=== PATIENT | male | born 1935 | race Hispanic/Latino ===

== ENCOUNTER 2017-12-24 12:54 | Observation (INO) | payer OTHER ==
[~2017-12-24] VITALS: Ht 172.7 cm; Wt 86.0 kg
[2017-12-24 13:49] LABS: BASOPHILS % (AUTO) 0.4 % (0.0-5.0); EOSINOPHILS % (AUTO) 4.9 % (0.0-8.0); HEMATOCRIT 37.1 % (42-54); LYMPHOCYTES % (AUTO) 21.1 % (21.0-51.0); MEAN CORPUSCULAR HEMOGLOBIN 28.6 pg (27.0-33.0); MEAN CORPUSCULAR HGB CONC 33.4 g/dL (32.0-36.0); MEAN CORPUSCULAR VOLUME 85.8 fL (79-99); MONOCYTES % (AUTO) 8.1 % (3.0-13.0); NEUTROPHILS % (AUTO) 65.5 % (40.0-77.0); PLATELET COUNT (AUTO) 184 K/uL (130-400); RED BLOOD CELL COUNT(AUTO) 4.33 MIL/uL (4.50-6.20); RED CELL DISTRIBUTION WIDTH 14.4 % (11.0-15.5); WHITE BLOOD COUNT (AUTO) 6.9 K/uL (4.8-10.8)
[2017-12-24 13:56] LABS: CREATININE 1.2 mg/dL (0.5-1.5)
[2017-12-24 14:01] LABS: ALBUMIN 3.2 g/dL (3.5-5.0); BILIRUBIN,TOTAL 0.5 mg/dL (0.2-1.0); TOTAL PROTEIN, SERUM 6.2 g/dL (6.0-8.3)
[2017-12-24 14:22] LABS: ALBUMIN 3.3 g/dL (3.5-5.0); BILIRUBIN,DIRECT 0.1 mg/dL (0.0-0.3); BILIRUBIN,TOTAL 0.5 mg/dL (0.2-1.0)
[2017-12-24 16:13] VITALS: BP 171/75
[2017-12-24 19:00] VITALS: BP 175/79
[2017-12-24] MEDS ORDERED: CANDESARTAN CILEXETIL 16 MG TAB PO SCH (19:00)
[2017-12-24] MEDS ORDERED: ALBUTEROL SULFATE 0.083% 2.5 MG/3 ML INH IH PRN (19:15)
[2017-12-24] MEDS ORDERED: DIPHENHYDRAMINE HCL 25 MG CAPSULE PO PRN (19:15)
[2017-12-24] MEDS ORDERED: GUAIFENESIN-DM 200/20 MG 10 ML PO PRN (19:15)
[2017-12-24] MEDS ORDERED: ZOLPIDEM TARTRATE 5 MG TAB PO PRN (19:15)
[2017-12-24] MEDS: METOPROLOL TARTRATE 50 MG TAB PO SCH (20:39)
[2017-12-24] MEDS: LOSARTAN 100 MG TABLET PO SCH (20:39)
[2017-12-24 23:00] VITALS: BP 153/69
[2017-12-25 03:00] VITALS: BP 150/74
[2017-12-25 04:02] LABS: HEMATOCRIT 38.6 % (42-54); MEAN CORPUSCULAR HEMOGLOBIN 28.6 pg (27.0-33.0); MEAN CORPUSCULAR HGB CONC 33.3 g/dL (32.0-36.0); MEAN CORPUSCULAR VOLUME 85.9 fL (79-99); PLATELET COUNT (AUTO) 202 K/uL (130-400); RED BLOOD CELL COUNT(AUTO) 4.49 MIL/uL (4.50-6.20); RED CELL DISTRIBUTION WIDTH 14.8 % (11.0-15.5); WHITE BLOOD COUNT (AUTO) 8.2 K/uL (4.8-10.8)
[2017-12-25 04:29] LABS: ALBUMIN 3.3 g/dL (3.5-5.0); BILIRUBIN,DIRECT 0.1 mg/dL (0.0-0.3); BILIRUBIN,TOTAL 0.5 mg/dL (0.2-1.0); CREATININE 1.2 mg/dL (0.5-1.5); POTASSIUM 4.1 mmol/L (3.5-5.1); TOTAL PROTEIN, SERUM 6.5 g/dL (6.0-8.3)
[2017-12-25 07:00] VITALS: BP 155/77
[2017-12-25] MEDS: MYRBETRIQ 25MG PO SCH ×2 (07:54→21:00)
[2017-12-25] MEDS: METOPROLOL TARTRATE 50 MG TAB PO SCH (07:54)
[2017-12-25] MEDS: LOSARTAN 100 MG TABLET PO SCH (08:01)
[2017-12-25] MEDS: PANTOPRAZOLE SODIUM 40 MG TABLET.DR PO SCH (08:02)
[2017-12-25] MEDS: AMLODIPINE BESYLATE 5 MG TAB PO SCH (09:39)
[2017-12-25 11:00] VITALS: BP 159/61
[2017-12-25 16:00] VITALS: BP 166/76
[2017-12-25 19:00] VITALS: BP 140/78
[2017-12-25 23:00] VITALS: BP 158/74
[2017-12-26 04:00] VITALS: BP 189/84
[2017-12-26] MEDS ORDERED: CLONIDINE HCL 0.1 MG TABLET PO STA (04:49)
[2017-12-26 06:25] VITALS: BP 168/97
[2017-12-26 07:45] VITALS: BP 160/82
[2017-12-26] MEDS: AMLODIPINE BESYLATE 5 MG TAB PO SCH (08:46)
[2017-12-26] MEDS: PANTOPRAZOLE SODIUM 40 MG TABLET.DR PO SCH (08:46)
[2017-12-26] MEDS: LOSARTAN 100 MG TABLET PO SCH (08:46)
[2017-12-26] MEDS: MYRBETRIQ 25MG PO SCH (09:00)
[2017-12-26 11:11] VITALS: BP 146/68
[2017-12-26] MEDS ORDERED: MIRA25TA PO ×2 (11:50)
[2017-12-26] MEDS ORDERED: METO-391 PO (11:50)
[2017-12-26] MEDS ORDERED: PRED20TA3 PO ×2 (11:50)
[2017-12-26] MEDS ORDERED: BACL10TA PO ×2 (11:50)
[2017-12-26] MEDS ORDERED: FLUT16H NASAL ×2 (11:50)
[2017-12-26] MEDS ORDERED: OLME40TA18 PO ×2 (11:50)
[2017-12-26] MEDS ORDERED: SERT100T PO ×2 (11:50)
[2017-12-26] MEDS ORDERED: ESOM40CA54 PO ×2 (11:50)
[2017-12-26] MEDS ORDERED: AMLO10TA6 PO ×2 (11:52)
[2017-12-26] MEDS ORDERED: CLON0.1T PO ×2 (11:52)
== END 2017-12-26 13:17 | disposition home or self-care (01) ==
LOC: EDH 12:54 → EDHIP 12:55 → 2AH 16:41
PROVIDERS: ADMIT Internal Medicine; ATTEND Internal Medicine
DX: I10 Essential (primary) hypertension (principal); I16.1 Hypertensive emergency; E78.5 Hyperlipidemia, unspecified; J44.9 Chronic obstructive pulmonary disease, unspecified; F32.9 Major depressive disorder, single episode, unspecified
CPT/HCPCS: 36415 ×2; 71045; 80048; 80053; 80076; 85025; 85027; 93005; 93306; 94640; 94664; 99285; G0378 ×48

== ENCOUNTER 2017-12-27 00:32 | Emergency (ER) | payer OTHER ==
[~2017-12-27 00:32] MED LIST: AMLO10TA6 PO; BACL10TA PO; CLON0.1T PO; ESOM40CA54 PO; FLUT16H NASAL; METO-391 PO; MIRA25TA PO; OLME40TA18 PO; PRED20TA3 PO; SERT100T PO
== END 2017-12-27 02:29 | disposition home or self-care (01) ==
LOC: EDH 00:32
DX: I10 Essential (primary) hypertension (principal); F43.9 Reaction to severe stress, unspecified; E78.5 Hyperlipidemia, unspecified; Z98.890 Other specified postprocedural states; Z72.0 Tobacco use
CPT/HCPCS: 93005; 96360

== ENCOUNTER 2018-01-01 13:20 | Emergency (ER) | payer OTHER ==
[~2018-01-01 13:20] MED LIST changes: -METO-391 PO
[2018-01-01] MEDS ORDERED: IOHEXOL 350 MG/ML 100ML INFUS..BTL IV ONE (13:51)
[2018-01-01 14:08] LABS: BASOPHILS % (AUTO) 0.2 % (0.0-5.0); EOSINOPHILS % (AUTO) 1.6 % (0.0-8.0); HEMATOCRIT 38.2 % (42-54); LYMPHOCYTES % (AUTO) 11.3 % (21.0-51.0); MEAN CORPUSCULAR HEMOGLOBIN 28.2 pg (27.0-33.0); MEAN CORPUSCULAR HGB CONC 33.1 g/dL (32.0-36.0); MEAN CORPUSCULAR VOLUME 85.2 fL (79-99); NEUTROPHILS % (AUTO) 79.9 % (40.0-77.0); PLATELET COUNT (AUTO) 185 K/uL (130-400); RED BLOOD CELL COUNT(AUTO) 4.48 MIL/uL (4.50-6.20); RED CELL DISTRIBUTION WIDTH 14.5 % (11.0-15.5); WHITE BLOOD COUNT (AUTO) 10.8 K/uL (4.8-10.8)
[2018-01-01 14:16] LABS: CREATININE 1.5 mg/dL (0.5-1.5); POTASSIUM 3.6 mmol/L (3.5-5.1)
[2018-01-01 14:21] LABS: ALBUMIN 3.7 g/dL (3.5-5.0); BILIRUBIN,TOTAL 0.8 mg/dL (0.2-1.0); INR 0.97 (0.85-1.15); PARTIAL THROMBOPLASTIN TIME 26.6 SEC (26.3-35.5); PROTHROMBIN TIME 10.2 SEC (9.6-11.6)
[2018-01-01] MEDS ORDERED: TRAMADOL HCL 50 MG TABLET ONE (15:23)
== END 2018-01-01 16:11 | disposition home or self-care (01) ==
LOC: EDH 13:20
DX: S02.2XXA Fracture of nasal bones, initial encounter for closed fracture (principal); S01.91XA Laceration without foreign body of unspecified part of head, initial encounter; I10 Essential (primary) hypertension; E78.5 Hyperlipidemia, unspecified; Z98.890 Other specified postprocedural states; V49.9XXA Car occupant (driver) (passenger) injured in unspecified traffic accident, initial encounter; Y93.89 Activity, other specified; Y92.410 Unspecified street and highway as the place of occurrence of the external cause; Y99.8 Other external cause status
CPT/HCPCS: 36415; 70450; 70486; 71045; 71260; 72125; 74177; 80053; 82550; 84484; 85025; 85610; 85730; 93005; 99285; Q9967

== ENCOUNTER 2023-04-16 06:01 | Day surgery (SDC) | payer MEDICARE ==
[2023-04-16] VITALS (12 sets, daily range): BP systolic 118–147; BP diastolic 48–87; PULSE 48–57; RESP 14–21
[~2023-04-16] VITALS: Ht 172.7 cm; Wt 84.4 kg
[~2023-04-16 06:01] MED LIST changes: -AMLO10TA6 PO; +ASPI-1197 PO; -CLON0.1T PO; +CLOP75TA32 PO; +DULO30CA52 PO; -FLUT16H NASAL; +FURO20TA4 PO; +GABA-529 PO; +ISOS30TA92 PO; +METO-391 PO; -MIRA25TA PO; +MIRA50TA PO; +MIRT-73 PO; +OXYB5TAB20 PO; +ROSU20TA73 PO; +SERT-440 PO; -SERT100T PO; +TOLT4CAP27 PO; +TRAZ-187 PO
[2023-04-16] MEDS ORDERED: ACET-2079 PO (07:24)
[2023-04-16] MEDS ORDERED: VITA1CAP85 PO (07:24)
[2023-04-16] MEDS ORDERED: MIRA50TA PO (07:24)
[2023-04-16] MEDS ORDERED: DOCU-116 PO (07:24)
[2023-04-16] MEDS: 0.9%NACL 1000ML 1,000 ML IV ONE (07:27)
[2023-04-16] MEDS ORDERED: PROPOFOL 10 MG/ML 20ML VIAL IV ONE (08:39)
[2023-04-16] MEDS ORDERED: LIDOCAINE HCL 1% 20 ML VIAL ONE (08:40)
[2023-04-16] MEDS ORDERED: LIDOCAINE 1%-EPI 1:100,000 20 ML VIAL ONE (08:53)
== END 2023-04-16 10:15 | disposition home or self-care (01) ==
LOC: ENDO 06:01 → DAH 06:01 → ENDO 10:15
PROVIDERS: ATTEND Internal Medicine Gastroenterology
DX: R13.12 Dysphagia, oropharyngeal phase (principal); R63.39 Other feeding difficulties; K31.89 Other diseases of stomach and duodenum; K21.9 Gastro-esophageal reflux disease without esophagitis; J44.9 Chronic obstructive pulmonary disease, unspecified; I10 Essential (primary) hypertension; E78.5 Hyperlipidemia, unspecified; F41.9 Anxiety disorder, unspecified; F32.A Depression, unspecified; I25.10 Atherosclerotic heart disease of native coronary artery without angina pectoris; M81.0 Age-related osteoporosis without current pathological fracture; M19.90 Unspecified osteoarthritis, unspecified site; F17.200 Nicotine dependence, unspecified, uncomplicated; G47.33 Obstructive sleep apnea (adult) (pediatric); I25.2 Old myocardial infarction; Z95.5 Presence of coronary angioplasty implant and graft; Z90.89 Acquired absence of other organs; Z98.890 Other specified postprocedural states; Z98.49 Cataract extraction status, unspecified eye
CPT/HCPCS: 43239; 43248; J3490; J7030; J2704; A4620; A4215 ×2; A4223; A7002; A4222; A4221; A4663; A4606

== ENCOUNTER → 2024-02-26 | Emergency (ER) | payer MEDICARE ==
[~2024-02-26] VITALS: Ht 172.7 cm; Wt 83.9 kg
[~2024-02-26] MED LIST changes: +ACET-2079 PO; +AEC81 PO; +ALBU2.5V2 NEB; -ASPI-1197 PO; +BUDE10.7 PO; +CHOL100046 PO; +DOCU-116 PO; -ESOM40CA54 PO; +ESOM40CA66 PO; -OXYB5TAB20 PO; -ROSU20TA73 PO; +ROSU20TA98 PO; -SERT-440 PO; -TRAZ-187 PO; +VENL-53 PO
[2024-02-26 07:16] VITALS: BP 189/100; PULSE 65; RESP 16; TEMP 97.9
--- NOTE | 2024-02-26 07:26 | NUR ---
PATIENT AND SON AT BEDSIDE VOICED DESIRE TO [facility] AND OPT TO GO TO [facility] [place]. REQUESTED NEUROSURGEON RELATED TO CHIEF COMPLAINT. ADVISED PATIENT SERVICES WILL BE OFFERED AND IF NECESSARY TRANSFER WILL BE AVAILABLE. HOWEVER ADVISED NUEROSURGEON WAS NOT AVAILABE AT THIS TIME AT [facility] [place]. DR STEVEN GAO.
--- NOTE | 2024-02-26 07:34 | ERN ---
General Chief Complaint: Other Problems Stated Complaint: SENT BY GIOVANNA YATES FROM [facility] Time Seen by MD: 07:16 Source: patient History of Present Illness Initial Comments Patient is a an 89-year-old gentleman coming in for further evaluation. Per patient he has been having dysphagia for some time evaluated at [facility] in the [place] and was referred to a specialist from [facility]. Per patient the specialist advised him to have a CT of the neck performed. He states that they called him last night to seek immediate help with the nearest ER for a possible infected cervical fracture repair. Patient states he had that cervical fracture repair five years ago. Patient also stated that he has been having dysphagia. Allergies: Coded Allergies: No Known Allergies (Unverified Allergy, Unknown, 12/24/17) Home Meds Reported Medications Budesonide/Glycopyr/Formoterol (Breztri Aerosphere Inhaler) 160 Mcg-9 Mcg-4.8 Mcg/Actuation Hfa.aer.ad, 2 PUFF PO BID 01/15/24 Aspirin (ASPIRIN 81 MG ECTAB) 81 Mg Ectab, 81 MG PO DAILY, TAB.EC 01/15/24 Cholecalciferol (Vitamin D3) (Vitamin D3) 25 Mcg (1000 Unit) Capsule, 25 MCG PO DAILY, CAP 01/15/24 Venlafaxine HCl (Venlafaxine HCl) 37.5 Mg Tablet, 37.5 MG PO DAILYBKFST, TAB 01/15/24 Albuterol Sulfate (Albuterol Sulfate) 2.5 Mg/3 Ml (0.083 %) Vial.neb, 1 VIAL NEB [id number] PRN for wheezing, #150 ML 0 Refills 01/15/24 Acetaminophen with Codeine (Acetaminophen-Cod #3 Tablet) 300 Mg-30 Mg Tablet, 1 EACH PO BID PRN for PAIN, TAB 04/16/23 Mirabegron (Myrbetriq) 50 Mg Tab.er.24h, 50 MG PO DAILY, TAB 04/16/23 Docusate Sodium (Colace) 100 Mg Capsule, 100 MG PO BID, CAP 04/16/23 Mirtazapine (Mirtazapine) 30 Mg Tab.rapdis, 30 MG PO HS, TAB 08/20/22 Rosuvastatin Calcium (Rosuvastatin Calcium) 20 Mg Tablet, 20 MG PO DAILY, TAB 05/22/22 Clopidogrel Bisulfate (Clopidogrel) 75 Mg Tablet, 75 MG PO DAILY, TAB 05/22/22 Olmesartan Medoxomil (Olmesartan Medoxomil) 40 Mg Tablet, 40 MG PO DAILY, TAB 05/22/22 Tolterodine Tartrate (Tolterodine Tartrate ER) 4 Mg Cap.er.24h, 4 MG PO DAILY, CAPSULE.DR 05/22/22 Esomeprazole Magnesium (Esomeprazole Magnesium) 40 Mg Capsule.dr, 40 MG PO DAILYBKFST, CAP 05/22/22 Duloxetine HCl (Duloxetine HCl) 30 Mg Capsule.dr, 60 MG PO DAILY, CAP 05/22/22 Furosemide (Furosemide) 20 Mg Tablet, 20 MG PO DAILY, TAB 05/22/22 Isosorbide Mononitrate (Isosorbide Mononitrate ER) 30 Mg Tab.er.24h, 30 MG PO DAILY, TAB 05/22/22 Gabapentin (Gabapentin) 100 Mg Capsule, 100 MG PO BID, CAP 05/22/22 Metoprolol Succinate (Metoprolol Succinate) 50 Mg Tab.er.24h, 50 MG PO DAILY, TAB 05/22/22 Baclofen (Baclofen) 10 Mg Tablet, 10 MG PO BID PRN for MUSCLE SPASMS, TAB 05/22/22 Prednisone (Prednisone) 20 Mg Tablet, 10 MG PO DAILY, TAB 12/26/17 Past Medical History Past Medical History: Arthritis, CHF, Hypertension Medical History Other: HX OF PROSTATE CA Past Surgical History: Other Surgical History Other: LOWER BACK SX; NECK SX; HEART STENT Social History Social History: Negative, Lives with family ROS Dictation CONSTITUTIONAL: No chills, no fever, no weakness, no diaphoresis, no malaise. HEAD/FACE: No signs of trauma. EENT: No eye pain, no blurred vision, no tearing, no double vision, no ear pain, no ear discharge, no nose pain, no nasal congestion, no throat pain, no throat swelling, no mouth pain. RESPIRATORY: No cough, no orthopnea, no SOB, no stridor, no wheezing. CARDIOVASCULAR: No chest pain, no edema, no palpitations, no syncope. GASTROINTESTINAL/ABDOMINAL: No abdominal pain, no constipation, no diarrhea, no nausea, no vomiting. GENITOURINARY: No abnormal discharge, no dysuria, no frequent urination, no hematuria. No complaints of pain in the genitals. MUSCULOSKELETAL: No back pain, no gout, no joint pain, no joint swelling, no muscle pain, no muscle stiffness, no neck pain. INTEGUMENTARY: No change in color, no change in hair/nails, no dryness, no lesion, no lumps, no rash. NEUROLOGICAL/PSYCH: No anxiety, not depressed, no emotional problem, no headache, no numbness, no pre-existing deficit, no history of seizures, no tremors, no weakness. HEMATOLOGIC/LYMPHATIC: Not anemic, no history of blood clots, no apparent bleeding, no bruising, glands not swollen. All Systems Negative, Except as Noted. Physical Exam Physical Exam Dictation VITAL SIGNS: Reviewed. GENERAL APPEARANCE: Alert, oriented x3, no acute distress, obese. HEAD AND FACE: Non-traumatic. EYES: PERRL, pink conjunctivas, eyelid no trauma, anterior chamber clear. EARS: Pinnas intact and no signs of trauma or erythema. Ear canals clear and no discharge. TMs no erythema. NOSE: No discharge, no bleeding. OROPHARYNX: Mouth normal, teeth no caries, tongue pink. Pharynx clear, no erythema. Tonsils no exudates, no abscesses noted. Mucous membrane moist. NECK: Supple, non-tender, no thyromegaly, no masses, no JVD, no bruits. BREAST: Deferred. CHEST: No tenderness, no crepitus, no paradoxical movement, no retractions. LUNGS: Clear, well-ventilated, symmetric, no rales, no wheezing, no rhonchi, no stridor, good breath sounds bilaterally. HEART: Regular rate, regular rhythm, no murmur, no gallops. VASCULAR: No peripheral edema. ABDOMEN: Soft, positive bowel sounds, nondistended, no guarding, nontender, no rebound, no masses no hepatomegaly, no splenomegaly, no Harrington's sign, no hernias. RECTAL: Deferred. GENITAL: Deferred. NEUROLOGICAL: Normal speech, gross motor function intact, gross sensory function intact. MUSCULOSKELETAL: Neck nontender, full range of motion, back nontender, full range of motion. EXTREMITIES: Nontender, full range of motion. SKIN: Color pink, dry, no turgor, no rash, no lacerations, no abrasions, no contusions. LYMPHATICS: Deferred. Results Laboratory and Microbiology Labs Reviewed?: Yes MDM MDM: Differential diagnosis: Abnormal CT, dysphagia, Patient is a an 89-year-old gentleman coming in due to an abnormal CT. He states that an ENT from [facility] I advised him to seek help with the nearest ER. I advised patient a CT need to be performed because we do not have his current images he states that the [facility] and if we can get him. Advised him we will start working on that. Also advised him that we will be needing to transfer him to to the nearest neurosurgeon. He states he was not aware of this and asked me if it is better if he left. I told them know that we could we would transfer him we will make arrangements with the transfer. Per nursing staff patient eloped without notifying anybody. ED Course Vital Signs Date Time Temp Pulse Resp B/P (MAP) Pulse Ox O2 Delivery O2 Flow Rate FiO2 02/26/24 07:16 97.9 65 16 189/100 93 Room Air DX & DISP Disposition: AMA Departure Impression: Primary Impression: Abnormal CT of spine Condition: Stable Additional Instructions: Was informed by nursing staff the patient eloped without notifying anybody. Referrals: LITO GARCIA MD (PCP) Time of Disposition: 07:33 JORJE HARRIS MD Feb 26, 2024 07:34
== END ==
LOC: EDH 07:12
DX: R93.7 Abnormal findings on diagnostic imaging of other parts of musculoskeletal system (principal); I11.0 Hypertensive heart disease with heart failure; I50.9 Heart failure, unspecified; Z79.02 Long term (current) use of antithrombotics/antiplatelets; Z79.52 Long term (current) use of systemic steroids; Z79.82 Long term (current) use of aspirin; Z79.899 Other long term (current) drug therapy; Z95.5 Presence of coronary angioplasty implant and graft; Z98.890 Other specified postprocedural states
CPT/HCPCS: 99281

== ENCOUNTER 2024-05-16 14:05 | Observation (INO) | payer MEDICARE ==
[~2024-05-16] VITALS: Ht 172.7 cm; Wt 86.2 kg
[2024-05-16 15:08] LABS: BASOPHILS # (AUTO) 0.02 K/uL (0.00-0.20); BASOPHILS % (AUTO) 0.3 % (0.0-5.0); EOSINOPHILS # (AUTO) 0.27 K/uL (0.00-0.70); EOSINOPHILS % (AUTO) 4.7 % (0.0-8.0); HEMATOCRIT 39.2 % (42-54); IMMATURE GRANULOCYTE ABSOLUTE 0.03 K/uL (0-1); LYMPHOCYTES # (AUTO) 1.2 K/uL (1.0-4.8); LYMPHOCYTES % (AUTO) 20.1 % (21.0-51.0); MEAN CORPUSCULAR HEMOGLOBIN 29.4 pg (27.0-33.0); MEAN CORPUSCULAR HGB CONC 32.1 g/dL (32.0-36.0); MEAN CORPUSCULAR VOLUME 91.4 fL (79-99); MONOCYTES # (AUTO) 0.5 K/uL (0.1-1.0); MONOCYTES % (AUTO) 8.7 % (3.0-13.0); NEUTROPHILS # (AUTO) 3.8 K/uL (1.8-7.7); NEUTROPHILS % (AUTO) 65.7 % (40.0-77.0); PLATELET COUNT (AUTO) 135 K/uL (130-400); RED BLOOD CELL COUNT(AUTO) 4.29 MIL/uL (4.50-6.20); RED CELL DISTRIBUTION WIDTH 15.5 % (11.0-15.5); WHITE BLOOD COUNT (AUTO) 5.7 K/uL (4.8-10.8)
[2024-05-16] MEDS: LACTATED RINGERS 1000ML 1,000 ML IV ONE (15:12)
--- NOTE | 2024-05-16 15:16 | HMCIMG ---
CT HEAD WITHOUT CONTRAST INDICATION: AMS TECHNIQUE: Noncontrast axial helical CT images from the vertex through the skull base using 5 mm slice thickness without contrast material. Coronal and sagittal reconstructions were also included. Dose reduction techniques was used using integrated, automated and adaptive dose reduction exposure control. CT was performed with one or more of the following dose reduction techniques: Automated exposure control, adjustment of the mA and/or kV according to patient size, or use of iterative reconstruction technique. COMPARISON: 08/19/2022 FINDINGS: Scattered and coalescent subcortical and periventricular white matter low attenuating areas likely represent residual of chronic small vessel arteriopathy and/or remote vascular insult. Chronic left basal ganglionic lacunar infarct or dilated perivascular space. Generalized mild cerebral cortical atrophy is present.. No evidence for abnormal extra-axial fluid collections or masses. The ventricles and sulci are normal in size and configuration. No evidence for intracranial parenchymal, epidural, or subdural hemorrhage, mass effect or midline shift. The lees-white matter differentiation is well preserved. No secondary evidence to suggest acute ischemia. Mild calcific plaque is present along the angeles of the cavernous segments of both internal carotid arteries, including mild along the angeles of both vertebral arteries at the level of the foramen magnum. The brainstem and cerebellum appear normal. The visualized orbits appear unremarkable. The visible paranasal sinuses and mastoid air cells are clear. The calvarium appears normal. IMPRESSION: Chronic white matter ischemic changes, mild brain atrophy, and arteriosclerotic disease as described, without acute component.
[2024-05-16 15:21] LABS: INR 1.03 (0.85-1.15); PROTHROMBIN TIME 10.9 SEC (9.6-11.6)
[2024-05-16 15:22] LABS: PARTIAL THROMBOPLASTIN TIME 31.2 SEC (26.3-35.5)
[2024-05-16 15:26] LABS: B-TYPE NATRIURETIC PEPTIDE 157 pg/mL (0-100)
--- NOTE | 2024-05-16 15:27 | HMCIMG ---
PORTABLE CHEST RADIOGRAPH INDICATION: CP COMPARISON: 01/15/2024 CT chest FINDINGS: Extremely shallow inspiration. Heart size is normal. The pulmonary vascularity and angel appear normal. No abnormal pulmonary parenchymal opacity or consolidation identified. No significant pleural effusion noted. No pneumothorax detected. IMPRESSION: Extremely shallow inspiration without radiographic evidence for any acute cardiopulmonary process.
--- NOTE | 2024-05-16 16:36 | ERN ---
General Chief Complaint: Fatigue Stated Complaint: LETHARGY Time Seen by MD: 14:08 Source: patient History of Present Illness Initial Comments Patient is a an 89-year-old gentleman brought in by family members due to generalized body weakness and altered mental status. Per family member patient has been taking Tylenol with codeine took one dose in his started having generalized body weakness with altered mental status. No fever or chills. Allergies: Coded Allergies: No Known Allergies (Unverified Allergy, Unknown, 12/24/17) Home Meds Reported Medications Budesonide/Glycopyr/Formoterol (Breztri Aerosphere Inhaler) 160 Mcg-9 Mcg-4.8 Mcg/Actuation Hfa.aer.ad, 2 PUFF PO BID 01/15/24 Aspirin (ASPIRIN 81 MG ECTAB) 81 Mg Ectab, 81 MG PO DAILY, TAB.EC 01/15/24 Cholecalciferol (Vitamin D3) (Vitamin D3) 25 Mcg (1000 Unit) Capsule, 25 MCG PO DAILY, CAP 01/15/24 Venlafaxine HCl (Venlafaxine HCl) 37.5 Mg Tablet, 37.5 MG PO DAILYBKFST, TAB 01/15/24 Albuterol Sulfate (Albuterol Sulfate) 2.5 Mg/3 Ml (0.083 %) Vial.neb, 1 VIAL NEB [id number] PRN for wheezing, #150 ML 0 Refills 01/15/24 Acetaminophen with Codeine (Acetaminophen-Cod #3 Tablet) 300 Mg-30 Mg Tablet, 1 EACH PO BID PRN for PAIN, TAB 04/16/23 Mirabegron (Myrbetriq) 50 Mg Tab.er.24h, 50 MG PO DAILY, TAB 04/16/23 Docusate Sodium (Colace) 100 Mg Capsule, 100 MG PO BID, CAP 04/16/23 Mirtazapine (Mirtazapine) 30 Mg Tab.rapdis, 30 MG PO HS, TAB 08/20/22 Rosuvastatin Calcium (Rosuvastatin Calcium) 20 Mg Tablet, 20 MG PO DAILY, TAB 05/22/22 Clopidogrel Bisulfate (Clopidogrel) 75 Mg Tablet, 75 MG PO DAILY, TAB 05/22/22 Olmesartan Medoxomil (Olmesartan Medoxomil) 40 Mg Tablet, 40 MG PO DAILY, TAB 05/22/22 Tolterodine Tartrate (Tolterodine Tartrate ER) 4 Mg Cap.er.24h, 4 MG PO DAILY, CAPSULE.DR 05/22/22 Esomeprazole Magnesium (Esomeprazole Magnesium) 40 Mg Capsule.dr, 40 MG PO DAILYBKFST, CAP 05/22/22 Duloxetine HCl (Duloxetine HCl) 30 Mg Capsule.dr, 60 MG PO DAILY, CAP 05/22/22 Furosemide (Furosemide) 20 Mg Tablet, 20 MG PO DAILY, TAB 05/22/22 Isosorbide Mononitrate (Isosorbide Mononitrate ER) 30 Mg Tab.er.24h, 30 MG PO DAILY, TAB 05/22/22 Gabapentin (Gabapentin) 100 Mg Capsule, 100 MG PO BID, CAP 05/22/22 Metoprolol Succinate (Metoprolol Succinate) 50 Mg Tab.er.24h, 50 MG PO DAILY, TAB 05/22/22 Baclofen (Baclofen) 10 Mg Tablet, 10 MG PO BID PRN for MUSCLE SPASMS, TAB 05/22/22 Prednisone (Prednisone) 20 Mg Tablet, 10 MG PO DAILY, TAB 12/26/17 Past Medical History Past Medical History: Arthritis, CHF, Hypertension Medical History Other: HX OF PROSTATE CA Past Surgical History: Other Surgical History Other: LOWER BACK SX; NECK SX; HEART STENT Social History Social History: Negative, Lives with family ROS Dictation CONSTITUTIONAL: No chills, no fever, no weakness, no diaphoresis, no malaise. HEAD/FACE: No signs of trauma. EENT: No eye pain, no blurred vision, no tearing, no double vision, no ear pain, no ear discharge, no nose pain, no nasal congestion, no throat pain, no t hroat swelling, no mouth pain. RESPIRATORY: No cough, no orthopnea, no SOB, no stridor, no wheezing. CARDIOVASCULAR: No chest pain, no edema, no palpitations, no syncope. GASTROINTESTINAL/ABDOMINAL: No abdominal pain, no constipation, no diarrhea, n o nausea, no vomiting. GENITOURINARY: No abnormal discharge, no dysuria, no frequent urination, no hematuria. No complaints of pain in the genitals. MUSCULOSKELETAL: No back pain, no gout, no joint pain, no joint swelling, no muscle pain, no muscle stiffness, no neck pain. INTEGUMENTARY: No change in color, no change in hair/nails, no dryness, no lesion, no lumps, no rash. NEUROLOGICAL/PSYCH: No anxiety, not depressed, no emotional problem, no headache, no numbness, no pre-existing deficit, no history of seizures, no tremors, no weakness. HEMATOLOGIC/LYMPHATIC: Not anemic, no history of blood clots, no apparent bleeding, no bruising, glands not swollen. All Systems Negative, Except as Noted. Physical Exam Physical Exam Dictation VITAL SIGNS: Reviewed. GENERAL APPEARANCE: Alert, oriented x3, no acute distress, obese. HEAD AND FACE: Non-traumatic. EYES: PERRL, pink conjunctivas, eyelid no trauma, anterior chamber clear. EARS: Pinnas intact and no signs of trauma or erythema. Ear canals clear and no discharge. TMs no erythema. NOSE: No discharge, no bleeding. OROPHARYNX: Mouth normal, teeth no caries, tongue pink. Pharynx clear, no erythema. Tonsils no exudates, no abscesses noted. Mucous membrane moist. NECK: Supple, non-tender, no thyromegaly, no masses, no JVD, no bruits. BREAST: Deferred. CHEST: No tenderness, no crepitus, no paradoxical movement, no retractions. LUNGS: Clear, well-ventilated, symmetric, no rales, no wheezing, no rhonchi, no stridor, good breath sounds bilaterally. HEART: Regular rate, regular rhythm, no murmur, no gallops. VASCULAR: No peripheral edema. ABDOMEN: Soft, positive bowel sounds, nondistended, no guarding, nontender, no rebound, no masses no hepatomegaly, no splenomegaly, no Harrington's sign, no hernias. RECTAL: Deferred. GENITAL: Deferred. NEUROLOGICAL: Normal speech, gross motor function intact, gross sensory function intact. MUSCULOSKELETAL: Neck nontender, full range of motion, back nontender, full range of motion. EXTREMITIES: Nontender, full range of motion. SKIN: Color pink, dry, no turgor, no rash, no lacerations, no abrasions, no contusions. LYMPHATICS: Deferred. Results Laboratory and Microbiology Lab and Micro Result Laboratory Tests Test 05/16/24 15:00 White Blood Count 5.7 K/uL (4.8-10.8) Red Blood Count 4.29 MIL/uL (4.50-6.20) L Hemoglobin 12.6 g/dL (14.0-18.0) L Hematocrit 39.2 % (42-54) L Mean Corpuscular Volume 91.4 fL (79-99) Mean Corpuscular Hemoglobin 29.4 pg (27.0-33.0) Mean Corpuscular Hemoglobin Concent 32.1 g/dL (32.0-36.0) Red Cell Distribution Width 15.5 % (11.0-15.5) Platelet Count 135 K/uL (130-400) Mean Platelet Volume 9.9 fL (7.5-10.5) Immature Granulocyte % (Auto) 0.5 % (0-1) Neutrophils (%) (Auto) 65.7 % (40.0-77.0) Lymphocytes (%) (Auto) 20.1 % (21.0-51.0) L Monocytes (%) (Auto) 8.7 % (3.0-13.0) Eosinophils (%) (Auto) 4.7 % (0.0-8.0) Basophils (%) (Auto) 0.3 % (0.0-5.0) Neutrophils # (Auto) 3.8 K/uL (1.8-7.7) Lymphocytes # (Auto) 1.2 K/uL (1.0-4.8) Monocytes # (Auto) 0.5 K/uL (0.1-1.0) Eosinophils # (Auto) 0.27 K/uL (0.00-0.70) Basophils # (Auto) 0.02 K/uL (0.00-0.20) Absolute Immature Granulocyte (auto 0.03 K/uL (0-1) Nucleated Red Blood Cells 0.0 % (0.0-0.19) Prothrombin Time 10.9 SEC (9.6-11.6) Prothromb Time International Ratio 1.03 (0.85-1.15) Activated Partial Thromboplast Time 31.2 SEC (26.3-35.5) Sodium Level 144 mmol/L (136-145) Potassium Level 4.7 mmol/L (3.5-5.1) Chloride Level 103 mmol/L (101-111) Carbon Dioxide Level 28 mmol/L (21-32) Blood Urea Nitrogen 21 mg/dL (7-18) H Creatinine 2.8 mg/dL (0.5-1.3) H Glomerular Filtration Rate Calc 21 mL/min (>90) Random Glucose 121 mg/dL (70-105) H Total Calcium 9.4 mg/dL (8.5-10.1) Magnesium Level 2.00 mg/dL (1.80-2.40) Ammonia 11 umol/L (11-32) Total Creatine Kinase 107 U/L (21-232) Troponin I High Sensitivity 73 ng/L (4-75) B-Type Natriuretic Peptide 157 pg/mL (0-100) H EKG/XRAY/US/CT/MRI EKG Comment 05/16/2024 time 3:55 p.m. Ventricular rate [address] wave elevation or depression X-RAY Comment [address] [place] [id number] IMAGING REPORT Signed PATIENT: MARIA VICTORIA ZENG JR MR#: [id number] : 1935 SEX: M AGE: 89 LOCATION: ED ORDER 40 STATUS: REG ER [facility] REPORT#: [id number] SERVICE 1439 REASON: CP ORDERING PHYSICIAN: JORJE HARRIS MD PROCEDURE: CXR1VW - CHEST 1VW PORTABLE CHEST RADIOGRAPH INDICATION: CP COMPARISON: 01/15/2024 CT chest FINDINGS: Extremely shallow inspiration. Heart size is normal. The pulmonary vascularity and angel appear normal. No abnormal pulmonary parenchymal opacity or consolidation identified. No significant pleural effusion noted. No pneumothorax detected. IMPRESSION: Extremely shallow inspiration without radiographic evidence for any acute cardiopulmonary process. DICTATED BY: CHRISTOPHER DAMICO MD DATE: 05/16/241524 ELECTRONICALLY SIGNED BY: CHRISTOPHER DAMICO MD DATE: 05/16/241526 CT Scan Comment [address] [place] [id number] IMAGING REPORT Signed PATIENT: MARIA VICTORIA ZENG JR MR#: [id number] : 1935 SEX: M AGE: 89 LOCATION: ED ORDER 144 STATUS: REG ER REPORT#: [id number] SERVICE 1439 REASON: AMS ORDERING PHYSICIAN: JORJE HARRIS MD PROCEDURE: HEAD WO - CT HEAD/BRAIN W/O CONTRAST CT HEAD WITHOUT CONTRAST INDICATION: AMS TECHNIQUE: Noncontrast axial helical CT images from the vertex through the skull base using 5 mm slice thickness without contrast material. Coronal and sagittal reconstructions were also included. Dose reduction techniques was used using integrated, automated and adaptive dose reduction exposure control. CT was performed with one or more of the following dose reduction techniques: Automated exposure control, adjustment of the mA and/or kV according to patient size, or use of iterative reconstruction technique. COMPARISON: 08/19/2022 FINDINGS: Scattered and coalescent subcortical and periventricular white matter low attenuating areas likely represent residual of chronic small vessel arteriopathy and/or remote vascular insult. Chronic left basal ganglionic lacunar infarct or dilated perivascular space. Generalized mild cerebral cortical atrophy is present.. No evidence for abnormal extra-axial fluid collections or masses. The ventricles and sulci are normal in size and configuration. No evidence for intracranial parenchymal, epidural, or subdural hemorrhage, mass effect or midline shift. The lees-white matter differentiation is well preserved. No secondary evidence to suggest acute ischemia. Mild calcific plaque is present along the angeles of the cavernous segments of both internal carotid arteries, including mild along the angeles of both vertebral arteries at the level of the foramen magnum. The brainstem and cerebellum appear normal. The visualized orbits appear unremarkable. The visible paranasal sinuses and mastoid air cells are clear. The calvarium appears normal. IMPRESSION: Chronic white matter ischemic changes, mild brain atrophy, and arteriosclerotic disease as described, without acute component. DICTATED BY: CHRISTOPHER DAMICO MD DATE: 05/16/24 151 ELECTRONICALLY SIGNED BY: CHRISTOPHER DAMICO MD DATE: 05/16/24 1516 MDM MDM: Differential diagnosis: MARIBELL, DEHYDRATION, Rationale: Tests considered and ordered secondary to shared decision making include: Previous outside records reviewed: Old ER visits. Risk of complication and/or morbidity or mortality of patient management: None Medications-Per medication reconciliation Need for hospitalization: Patient does not meet criteria for hospitalization. Need for emergency major/minor surgery: No There are no social concerns with this patient. Prescription drug management Prescriptions will include symptomatic care Patient's prior external medical records from other ER visits were reviewed by me as indicated. Prior testing and results from previous visits were reviewed. Prior tests were taken into account with medical decision making and resource utilization, independent historian/historians were used to obtain complete medical history. I independently interpreted the test that were performed, results were reviewed by me and considered findings on radiology if ordered. Medical management and examination interpretation discussions were had by me with other qualified healthcare professionals as indicated for the patient's care. Patient has an acute kidney injury associated with his weakness. We have called Dr. Maher around 8:00 p.m. and he will get back to us. ED Course Orders Procedure Category Date Status Time Cbc With Differential LAB 05/16/24 Complete 14:39 Prothrombin Time With LAB 05/16/24 Complete INR 14:39 B-Type Natriuretic LAB 05/16/24 Complete Peptide 14:39 Chest 1vw RAD 05/16/24 Resulted 14:39 12 Lead Ekg Tracing- EKG 05/16/24 Logged Technical 14:39 Lactated Ringers PHA 05/16/24 Complete 1000ml (Lactated 15:00 Magnesium LAB 05/16/24 Complete 14:39 Creatine Kinase, Total LAB 05/16/24 Complete 14:39 Troponin I High LAB 05/16/24 Complete Sensitivity 14:39 Urinalysis Profile LAB 05/16/24 Logged 14:39 Partial LAB 05/16/24 Complete Thromboplastin Time 14:39 Ammonia LAB 05/16/24 Complete 14:39 Ct Head/Brain W/O CT 05/16/24 Resulted Contrast 14:39 Basic Metabolic Panel LAB 05/16/24 Complete 17:38 0.9%Nacl 1000ml (Ns PHA 05/16/24 Complete 1000ml) 19:00 Current Medications Medications (Trade) Dose Ordered Sig/Alycia Route PRN Reason Start Time Stop Time Status Last Admin Dose Admin Lactated Ringer's 1,000 ml @ 0 mls/hr ONCE ONCE IV 05/16/24 15:00 05/16/24 15:01 DC 05/16/24 15:12 Sodium Chloride 1,000 ml @ 0 mls/hr ONCE ONCE IV 05/16/24 19:00 05/16/24 19:01 DC 05/16/24 20:06 Vital Signs Date Time Temp Pulse Resp B/P (MAP) Pulse Ox O2 Delivery O2 Flow Rate FiO2 05/16/24 17:50 94 18 166/89 95 Nasal Cannula* 2 28 05/16/24 15:59 97.9 58 14 108/58 97 Room Air* 0 21 05/16/24 14:09 98.1 71 16 94/59 98 Room Air 0 DX & DISP Disposition: Other(Comment) (PATIENT CARE TRANSITIONED TO DR. LANDA) Departure Impression: Primary Impression: MARIBELL (acute kidney injury) Condition: Stable Referrals: LITO GARCIA MD (PCP) JORJE HARRIS MD May 16, 2024 16:36 BLAZE LANDA MD May 16, 2024 22:11
[2024-05-16 18:22] LABS: CREATININE 2.8 mg/dL (0.5-1.3); POTASSIUM 4.7 mmol/L (3.5-5.1)
[2024-05-16] MEDS: 0.9%NACL 1000ML 1,000 ML IV ONE (20:06)
--- NOTE | 2024-05-16 23:42 | NUR ---
BLADDER SCAN 504 ML
[2024-05-17 00:18] LABS: APPEARANCE,URINE CLEAR (CLEAR); BILIRUBIN,URINE NEGATIVE (NEGATIVE); COLOR,URINE LIGHT-YELLOW (YELLOW); GLUCOSE, URINE (UA) NEGATIVE (NEGATIVE); KETONES,URINE NEGATIVE (NEGATIVE); LEUKOCYTE ESTERASE ,URINE NEGATIVE Leu/uL (NEGATIVE); NITRATE,URINE NEGATIVE (NEGATIVE); OCCULT BLOOD,URINE NEGATIVE (NEGATIVE); PROTEIN,URINE NEGATIVE (NEGATIVE); UROBILINOGEN,URINE 0.2 mg/dL (0.2-1.0)
[2024-05-17 00:19] LABS: ADD UA MICROSCOPIC NO
[2024-05-17] MEDS: cefTRIAXone 1G VIAL IVPB SCH (00:32)
[2024-05-17] MEDS ORDERED: OXYB5TAB20 PO (00:57)
[2024-05-17] MEDS ORDERED: VENL-53 PO (00:57)
[2024-05-17] MEDS ORDERED: MIRT-93 PO (00:57)
[2024-05-17] MEDS ORDERED: TOLT4CAP27 PO (00:57)
[2024-05-17] MEDS ORDERED: ESOM40CA66 PO (00:57)
[2024-05-17] MEDS ORDERED: TRAZ-187 PO (00:57)
[2024-05-17] MEDS ORDERED: ASPI-1443 PO (00:57)
[2024-05-17] MEDS ORDERED: METO-409 PO (00:57)
[2024-05-17] MEDS ORDERED: DOCU100C33 PO (00:57)
[2024-05-17] MEDS ORDERED: NAPR-1194 PO (00:57)
[2024-05-17] MEDS ORDERED: ROSU40TA88 PO (00:57)
[2024-05-17] MEDS ORDERED: NAPROXEN 500 MG TABLET PO PRN (01:00)
[2024-05-17] MEDS ORDERED: trAZOdone HCL 100 MG TABLET PO PRN (01:00)
[2024-05-17 06:26] LABS: BASOPHILS # (AUTO) 0.02 K/uL (0.00-0.20); BASOPHILS % (AUTO) 0.3 % (0.0-5.0); EOSINOPHILS # (AUTO) 0.25 K/uL (0.00-0.70); EOSINOPHILS % (AUTO) 4.2 % (0.0-8.0); HEMATOCRIT 40.5 % (42-54); IMMATURE GRANULOCYTE ABSOLUTE 0.02 K/uL (0-1); LYMPHOCYTES # (AUTO) 1.5 K/uL (1.0-4.8); LYMPHOCYTES % (AUTO) 24.6 % (21.0-51.0); MEAN CORPUSCULAR HEMOGLOBIN 28.6 pg (27.0-33.0); MEAN CORPUSCULAR HGB CONC 31.1 g/dL (32.0-36.0); MEAN CORPUSCULAR VOLUME 91.8 fL (79-99); MONOCYTES # (AUTO) 0.5 K/uL (0.1-1.0); MONOCYTES % (AUTO) 8.8 % (3.0-13.0); NEUTROPHILS # (AUTO) 3.7 K/uL (1.8-7.7); NEUTROPHILS % (AUTO) 61.8 % (40.0-77.0); PLATELET COUNT (AUTO) 128 K/uL (130-400); RED BLOOD CELL COUNT(AUTO) 4.41 MIL/uL (4.50-6.20); RED CELL DISTRIBUTION WIDTH 15.4 % (11.0-15.5)
[2024-05-17 06:34] LABS: ALBUMIN 3.1 g/dL (3.5-5.0); BILIRUBIN,TOTAL 0.5 mg/dL (0.2-1.0); CREATININE 1.8 mg/dL (0.5-1.3); POTASSIUM 4.7 mmol/L (3.5-5.1); TOTAL PROTEIN, SERUM 6.4 g/dL (6.0-8.3)
--- NOTE | 2024-05-17 07:00 | NUR ---
Assumed patients care.
--- NOTE | 2024-05-17 08:00 | NUR ---
Home medications reconsiled by physician.
[2024-05-17] MEDS: PANTOPrazole 40 MG TAB DR PO SCH (08:05)
[2024-05-17] MEDS: oxyBUTYnin chloRIDE 5 MG TABLET PO SCH (08:05)
[2024-05-17] MEDS: doCUSate SODIUM 100 MG CAP PO SCH (08:05)
[2024-05-17] MEDS: furoSEMIDE 20 MG TABLET PO SCH (08:05)
[2024-05-17] MEDS: cloPIDOgrel 75MG TAB PO SCH (08:05)
--- NOTE | 2024-05-17 08:05 | EKG ---
[facility] Test Date: 2024-05-16 Test Time: 14:55:03 Pat Name: MARIA VICTORIA ZENG Department: [facility]IP Room: 322 Gender: M Well Puller: [id number] : 1935 Requested By: JORJE HARRIS Order Number: [id number] Reading MD: Gisella Cortés Measurements Intervals [place] Rate: 89 P: 0 [place]: 0 QRS: 0 QRSD: 123 T: 184 QT: 422 QTc: 513 Interpretive Statements Likely sinus rhythm with pacs and sinus arrhythmia poor baseline, p waves not well seen Right bundle branch block Abnrm T, consider ischemia, anterolateral lds Electronically Signed On 05-24-2024 00:47:37 CDT by Gisella Cortés Please click the below link to view image of tracing.
[2024-05-17] MEDS: acetaMINOPHEN WITH coDEINE 1 TAB TAB PO PRN (08:06)
[2024-05-17] MEDS: metOPROLol sucCINATE 50 MG TAB.SR.24H PO SCH (08:06)
[2024-05-17] MEDS: GABApentin 100 MG CAPSULE PO SCH (08:07)
[2024-05-17] MEDS: ISOSORBIDE MONO 30MG SR TAB PO SCH (08:07)
[2024-05-17] MEDS: BACLOFEN 10 MG TABLET PO SCH (08:07)
[2024-05-17] MEDS: 1/2 NS 1000ML 1,000 ML IV SCH (08:23)
[2024-05-17] MEDS: LoSARTan 100 MG TABLET PO SCH (08:49)
[2024-05-17] MEDS: CHOLECALCIFEROL PO SCH (08:50)
[2024-05-17] MEDS: VENLAFAXINE HCL PO SCH (08:50)
[2024-05-17] MEDS: MIRABEGRON PO SCH (08:50)
--- NOTE | 2024-05-17 08:52 | NUR ---
Discussed plan of care, pain management, diet restrictions, and home medications. Patient and son verbalized understanding.
--- NOTE | 2024-05-17 08:56 | NUR ---
Called extention [phone] to give report. no answer.
[2024-05-17 09:00] VITALS: BP 136/70; PULSE 89; RESP 18; TEMP 98.3
--- NOTE | 2024-05-17 09:30 | NUR ---
Received from ER PT is received from ER. IV fluids are infusing by PIV. There is Unger catheter in place to gravity. PT denies pain and his son was at the bedisde during admissio to answer questions. The call perez is left in reach and the bed is in a low position.
--- NOTE | 2024-05-17 09:58 | PN ---
SUBJECTIVE: The patient was admitted by Dr. Maher for assessment and treatment of generalized body weakness and change in mental status. Decreasing oral intake. The patient was examined. Labs were reviewed. He was admitted with diagnosis of acute kidney injury, dehydration, possible UTI. The patient is currently on Rocephin 1 gram IV daily as well as IV fluids. OBJECTIVE: GENERAL: He is currently comfortable in bed, not in distress. VITAL SIGNS: In the chart. HEENT: Normocephalic, atraumatic. LUNGS: Clear to auscultation. HEART: S1, S2 are distant. ABDOMEN: Soft, nontender. LABORATORY DATA: WBC count 6, hemoglobin 12.6, platelets 128. Sodium 141, potassium 4.7, BUN 17, creatinine 1.8, albumin 3.1. ASSESSMENT AND PLAN: * Dehydration. Continue with IV fluids. * Acute kidney injury. Continue with IV fluids. * Hypertension, controlled. Continue current medications. * Depression. Continue current medications. 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 Continue current approach. * COPD. Continue home medications. Plan to discharge when stable. DOS: 05/17/2024 TID: [id number] RECEIPT: [id number] [facility]
[2024-05-17 10:00] VITALS: O2SAT 9
--- NOTE | 2024-05-17 10:44 | HMCIMG ---
US RENAL SONOGRAM HISTORY: Acute renal insufficiency COMPARISON: None TECHNIQUE: Renal and bladder ultrasound study was performed. FINDINGS: The right kidney measures 8.7 x 4.3 x 5.1 cm. The left kidney measures 8.9 x 4.8 x 4.3 cm. No evidence of hydronephrosis is seen of either kidney. Both kidneys are mildly echogenic consistent with medical renal disease. Bladder is poorly distended. Unger catheter is seen. IMPRESSION: 1. No hydronephrosis is seen.
[2024-05-17 11:11] VITALS: BP 110/60; PULSE 73; RESP 18; TEMP 98
[2024-05-17] MEDS ORDERED: PHARMACY COMMUNICATION MISC SCH (11:30)
[2024-05-17 15:12] VITALS: BP 109/72; PULSE 64; RESP 18; TEMP 98.1
--- NOTE | 2024-05-17 15:41 | NUR ---
DCP: HOME Sw met with pt who lives at home with a 09/09 caregiver Delphine Vanegas. GEORGIE Estes [phone] is ER contact for pt. Pt also has a LEGAL ADVISER 3x a week and provider 10hrs wk, and a nurse 1x a month thru [place]. Pt has walker with seat, w/c, shower chair and nebulizer. PCP is Alicia De La Cruz and Dr Worthy at [place]. Pt uses [facility] for rx. Pt states he will return home with current services at [facility] Addendum: 05/17/24 at 1546 by NIC HIDALGO Amended: Links added.
[2024-05-17] MEDS: ASPIRIN 81 MG EC TAB PO SCH (16:09)
[2024-05-17 19:00] VITALS: BP 130/77; PULSE 53; RESP 18; TEMP 98.6
[2024-05-17] MEDS: TOLTERODINE TARTRATE PO SCH (19:54)
[2024-05-17] MEDS: mirtAZAPine 15 MG TABLET PO SCH (19:54)
[2024-05-17] MEDS: atorVAStatin 40 MG TABLET PO SCH (19:54)
[2024-05-17 20:00] VITALS: O2SAT 97
--- NOTE | 2024-05-17 22:50 | HP ---
HISTORY AND PHYSICAL NOTE DATE OF CONSULTATION: 05/17/24 REASON FOR CONSULTATION: Weakness HISTORY OF PRESENT ILLNESS: Patient is a an 89-year-old gentleman brought in by family members due to generalized body weakness and altered mental status. Per family member patient has been taking Tylenol with codeine took one dose in his started having generalized body weakness with altered mental status. No fever or chills. Allergies: Coded Allergies: No Known Allergies (Unverified Allergy, Unknown, 12/24/17) Home Meds Reported Medications Budesonide/Glycopyr/Formoterol (Breztri Aerosphere Inhaler) 160 Mcg-9 Mcg-4.8 Mcg/Actuation Hfa.aer.ad, 2 PUFF PO BID 01/15/24 Aspirin (ASPIRIN 81 MG ECTAB) 81 Mg Ectab, 81 MG PO DAILY, TAB.EC 01/15/24 Cholecalciferol (Vitamin D3) (Vitamin D3) 25 Mcg (1000 Unit) Capsule, 25 MCG PO DAILY, CAP 01/15/24 Venlafaxine HCl (Venlafaxine HCl) 37.5 Mg Tablet, 37.5 MG PO DAILYBKFST, TAB 01/15/24 Albuterol Sulfate (Albuterol Sulfate) 2.5 Mg/3 Ml (0.083 %) Vial.neb, 1 VIAL NEB [id number] PRN for wheezing, #150 ML 0 Refills 01/15/24 Acetaminophen with Codeine (Acetaminophen-Cod #3 Tablet) 300 Mg-30 Mg Tablet, 1 EACH PO BID PRN for PAIN, TAB 04/16/23 Mirabegron (Myrbetriq) 50 Mg Tab.er.24h, 50 MG PO DAILY, TAB 04/16/23 Docusate Sodium (Colace) 100 Mg Capsule, 100 MG PO BID, CAP 04/16/23 Mirtazapine (Mirtazapine) 30 Mg Tab.rapdis, 30 MG PO HS, TAB 08/20/22 Rosuvastatin Calcium (Rosuvastatin Calcium) 20 Mg Tablet, 20 MG PO DAILY, TAB 05/22/22 Clopidogrel Bisulfate (Clopidogrel) 75 Mg Tablet, 75 MG PO DAILY, TAB 05/22/22 Olmesartan Medoxomil (Olmesartan Medoxomil) 40 Mg Tablet, 40 MG PO DAILY, TAB 05/22/22 Tolterodine Tartrate (Tolterodine Tartrate ER) 4 Mg Cap.er.24h, 4 MG PO DAILY, CAPSULE.DR 05/22/22 Esomeprazole Magnesium (Esomeprazole Magnesium) 40 Mg Capsule.dr, 40 MG PO DAILYBKFST, CAP 05/22/22 Duloxetine HCl (Duloxetine HCl) 30 Mg Capsule.dr, 60 MG PO DAILY, CAP 05/22/22 Furosemide (Furosemide) 20 Mg Tablet, 20 MG PO DAILY, TAB 05/22/22 Isosorbide Mononitrate (Isosorbide Mononitrate ER) 30 Mg Tab.er.24h, 30 MG PO DAILY, TAB 05/22/22 Gabapentin (Gabapentin) 100 Mg Capsule, 100 MG PO BID, CAP 05/22/22 Metoprolol Succinate (Metoprolol Succinate) 50 Mg Tab.er.24h, 50 MG PO DAILY, TAB 05/22/22 Baclofen (Baclofen) 10 Mg Tablet, 10 MG PO BID PRN for MUSCLE SPASMS, TAB 05/22/22 Prednisone (Prednisone) 20 Mg Tablet, 10 MG PO DAILY, TAB 12/26/17 Past History Past Medical History Past Medical History: Arthritis, CHF, Hypertension Medical History Other: HX OF PROSTATE CA Past Surgical History: Other Surgical History Other: LOWER BACK SX; NECK SX; HEART STENT Social History Social History: Negative, Lives with family Review of Systems ROS Dictation CONSTITUTIONAL: No chills, no fever, no weakness, no diaphoresis, no malaise. HEAD/FACE: No signs of trauma. EENT: No eye pain, no blurred vision, no tearing, no double vision, no ear pain, no ear discharge, no nose pain, no nasal congestion, no throat pain, no throat swelling, no mouth pain. RESPIRATORY: No cough, no orthopnea, no SOB, no stridor, no wheezing. CARDIOVASCULAR: No chest pain, no edema, no palpitations, no syncope. GASTROINTESTINAL/ABDOMINAL: No abdominal pain, no constipation, no diarrhea, no nausea, no vomiting. GENITOURINARY: No abnormal discharge, no dysuria, no frequent urination, no hematuria. No complaints of pain in the genitals. MUSCULOSKELETAL: No back pain, no gout, no joint pain, no joint swelling, no muscle pain, no muscle stiffness, no neck pain. INTEGUMENTARY: No change in color, no change in hair/nails, no dryness, no lesion, no lumps, no rash. NEUROLOGICAL/PSYCH: No anxiety, not depressed, no emotional problem, no headache, no numbness, no pre-existing deficit, no history of seizures, no t remors, no weakness. HEMATOLOGIC/LYMPHATIC: Not anemic, no history of blood clots, no apparent bleeding, no bruising, glands not swollen. All Systems Negative, Except as Noted. Physical Exam ALLERGIES: Coded Allergies: No Known Allergies (Unverified Allergy, Unknown, 12/24/17) HOME MEDS: Reported Medications Trazodone HCl (Trazodone HCl) 100 Mg Tablet, 50 MG PO HSPRN PRN for AGITATION, TAB 05/17/24 Naproxen (Naproxen) 500 Mg Tablet, 1 TAB PO BID PRN for PAIN for 30 Days, #60 TAB 0 Refills 05/17/24 Mirtazapine (Mirtazapine) 30 Mg Tablet, 1 TAB PO HS for 30 Days, #30 TAB 0 Refills 05/17/24 Acetaminophen with Codeine (Acetaminophen-Cod #3 Tablet) 300 Mg-30 Mg Tablet, 1 TAB PO BID PRN for pain for 7 Days, #28 TAB 0 Refills 05/17/24 Tolterodine Tartrate (Tolterodine Tartrate ER) 4 Mg Cap.er.24h, 1 CAP PO HS for 30 Days, #30 CAP 0 Refills 05/17/24 Rosuvastatin Calcium (Rosuvastatin Calcium) 40 Mg Tablet, 1 TAB PO HS for high cholesterol for 30 Days, #30 TAB 0 Refills 05/17/24 Docusate Sodium (Docusate Sodium) 100 Mg Capsule, 1 CAP PO DAILY for constipation for 7 Days, #14 CAP 0 Refills 05/17/24 Furosemide (Furosemide) 20 Mg Tablet, 1 TAB PO DAILY for 30 Days, #30 TAB 0 Refills 05/17/24 Metoprolol Succinate (Metoprolol Succinate) 100 Mg Tab.er.24h, 1 TAB PO DAILY for 30 Days, #30 TAB 0 Refills 05/17/24 Aspirin (Aspirin EC) 81 Mg Tablet.dr, 1 TAB PO DAILY for 30 Days, #30 TAB 0 Refills 05/17/24 Venlafaxine HCl (Venlafaxine HCl) 37.5 Mg Tablet, 1 TAB PO DAILY for 30 Days, #60 TAB 0 Refills 05/17/24 Mirabegron (Myrbetriq) 50 Mg Tab.er.24h, 1 TAB PO DAILY for 30 Days, #30 TAB 0 Refills 05/17/24 Cholecalciferol (Vitamin D3) (Vitamin D3) 25 Mcg (1000 Unit) Capsule, 1 CAP PO DAILY for 30 Days, #30 CAP 0 Refills 05/17/24 Esomeprazole Magnesium (Esomeprazole Magnesium) 40 Mg Capsule.dr, 1 CAP PO DAILY for 30 Days, #30 CAP 0 Refills 05/17/24 Clopidogrel Bisulfate (Clopidogrel) 75 Mg Tablet, 1 TAB PO DAILY for 30 Days, #30 TAB 0 Refills 05/17/24 Gabapentin (Gabapentin) 100 Mg Capsule, 1 CAP PO BID for 30 Days, #90 CAP 0 Refills 05/17/24 Baclofen (Baclofen) 10 Mg Tablet, 1 TAB PO BID for 30 Days, #90 TAB 0 Refills 05/17/24 Oxybutynin Chloride (Oxybutynin Chloride) 5 Mg Tablet, 1 TAB PO DAILY for urinary discomfort for 30 Days, #60 TAB 0 Refills 05/17/24 Olmesartan Medoxomil (Olmesartan Medoxomil) 40 Mg Tablet, 1 TAB PO DAILY for 30 Days, #30 TAB 0 Refills 05/17/24 Isosorbide Mononitrate (Isosorbide Mononitrate ER) 30 Mg Tab.er.24h, 1 TAB PO DAILY for 30 Days, #30 TAB 0 Refills 05/17/24 Budesonide/Glycopyr/Formoterol (Breztri Aerosphere Inhaler) 160 Mcg-9 Mcg-4.8 Mcg/Actuation Hfa.aer.ad, 2 PUFF PO BID 01/15/24 Aspirin (ASPIRIN 81 MG ECTAB) 81 Mg Ectab, 81 MG PO DAILY, TAB.EC 01/15/24 Cholecalciferol (Vitamin D3) (Vitamin D3) 25 Mcg (1000 Unit) Capsule, 25 MCG PO DAILY, CAP 01/15/24 Venlafaxine HCl (Venlafaxine HCl) 37.5 Mg Tablet, 37.5 MG PO DAILYBKFST, TAB 01/15/24 Albuterol Sulfate (Albuterol Sulfate) 2.5 Mg/3 Ml (0.083 %) Vial.neb, 1 VIAL NEB [id number] PRN for wheezing, #150 ML 0 Refills 01/15/24 Acetaminophen with Codeine (Acetaminophen-Cod #3 Tablet) 300 Mg-30 Mg Tablet, 1 EACH PO BID PRN for PAIN, TAB 04/16/23 Mirabegron (Myrbetriq) 50 Mg Tab.er.24h, 50 MG PO DAILY, TAB 04/16/23 Docusate Sodium (Colace) 100 Mg Capsule, 100 MG PO BID, CAP 04/16/23 Mirtazapine (Mirtazapine) 30 Mg Tab.rapdis, 30 MG PO HS, TAB 08/20/22 Rosuvastatin Calcium (Rosuvastatin Calcium) 20 Mg Tablet, 20 MG PO DAILY, TAB 05/22/22 Clopidogrel Bisulfate (Clopidogrel) 75 Mg Tablet, 75 MG PO DAILY, TAB 05/22/22 Olmesartan Medoxomil (Olmesartan Medoxomil) 40 Mg Tablet, 40 MG PO DAILY, TAB 05/22/22 Tolterodine Tartrate (Tolterodine Tartrate ER) 4 Mg Cap.er.24h, 4 MG PO DAILY, CAPSULE.DR 05/22/22 Esomeprazole Magnesium (Esomeprazole Magnesium) 40 Mg Capsule.dr, 40 MG PO DAILYBKFST, CAP 05/22/22 Duloxetine HCl (Duloxetine HCl) 30 Mg Capsule.dr, 60 MG PO DAILY, CAP 05/22/22 Furosemide (Furosemide) 20 Mg Tablet, 20 MG PO DAILY, TAB 05/22/22 Isosorbide Mononitrate (Isosorbide Mononitrate ER) 30 Mg Tab.er.24h, 30 MG PO DAILY, TAB 05/22/22 Gabapentin (Gabapentin) 100 Mg Capsule, 100 MG PO BID, CAP 05/22/22 Metoprolol Succinate (Metoprolol Succinate) 50 Mg Tab.er.24h, 50 MG PO DAILY, TAB 05/22/22 Baclofen (Baclofen) 10 Mg Tablet, 10 MG PO BID PRN for MUSCLE SPASMS, TAB 05/22/22 Prednisone (Prednisone) 20 Mg Tablet, 10 MG PO DAILY, TAB 12/26/17 INPATIENT MEDS: Current Medications Medications Dose Ordered Sig/Alycia Start Time Stop Time Status Last Admin Ceftriaxone Sodium 1 gm Q24H 05/17/24 00:00 05/27/24 00:00 05/17/24 00:32 Acetaminophen/ Codeine Phosphate 1 tab BID PRN 05/17/24 01:00 06/16/24 00:59 05/17/24 08:06 Aspirin 81 mg DAILY 05/17/24 09:00 06/16/24 08:59 Baclofen 10 mg BID 05/17/24 09:00 06/16/24 08:59 05/17/24 19:54 Clopidogrel Bisulfate 75 mg DAILY 05/17/24 09:00 06/16/24 08:59 05/17/24 08:05 Docusate Sodium 100 mg DAILY 05/17/24 09:00 06/16/24 08:59 05/17/24 08:05 Furosemide 20 mg DAILY 05/17/24 09:00 06/16/24 08:59 05/17/24 08:05 Gabapentin 100 mg BID 05/17/24 09:00 06/16/24 08:59 05/17/24 19:54 Isosorbide Mononitrate 30 mg DAILY 05/17/24 09:00 06/16/24 08:59 05/17/24 08:07 Naproxen 500 mg BID PRN 05/17/24 01:00 06/16/24 00:59 Oxybutynin Chloride 5 mg DAILY 05/17/24 09:00 06/16/24 08:59 05/17/24 08:05 Trazodone HCl 50 mg HSPRN PRN 05/17/24 01:00 06/16/24 00:59 Home Med DAILY 05/17/24 09:00 06/16/24 08:59 Pantoprazole Sodium 40 mg DAILY 05/17/24 09:00 06/16/24 08:59 05/17/24 08:05 Metoprolol Succinate 100 mg DAILY 05/17/24 09:00 06/16/24 08:59 05/17/24 08:06 Home Med DAILY 05/17/24 09:00 06/16/24 08:59 Mirtazapine 30 mg HS 05/17/24 21:00 06/16/24 20:59 05/17/24 19:54 Losartan Potassium 100 mg DAILY 05/17/24 09:00 06/16/24 08:59 05/17/24 08:49 Atorvastatin Calcium 80 mg HS 05/17/24 21:00 06/16/24 20:59 3/31/25 19:54 Home Med HS 05/17/24 21:00 06/16/24 20:59 Home Med DAILY 05/17/24 09:00 06/16/24 08:59 Sodium Chloride 1,000 ml @ 125 mls/hr Q8H 05/17/24 08:00 06/16/24 07:59 05/17/24 16:08 VITAL SIGNS Vital Signs Date Time Temp Pulse Resp B/P (MAP) Pulse Ox O2 Delivery O2 Flow Rate FiO2 05/17/24 20:00 97 Nasal Cannula* 2 28 05/17/24 19:00 98.6 53 18 130/77 94 Nasal Cannula 2.0 05/17/24 15:12 98.1 64 18 109/72 97 Nasal Cannula 2.0 05/17/24 11:11 98.1 73 18 110/60 95 Nasal Cannula 2.0 05/17/24 10:00 9 Room Air* 0 21 05/17/24 09:00 98.2 89 18 136/70 96 Nasal Cannula 2.0 05/17/24 07:42 99.0 68 14 120/100 98 Room Air* 0 21 05/17/24 03:49 98.6 59 18 121/54 97 Nasal Cannula* 3 32 05/17/24 00:37 98.4 82 19 160/74 97 Nasal Cannula* 3 32 PHYSICAL EXAM Physical Exam Physical Exam Dictation VITAL SIGNS: Reviewed. GENERAL APPEARANCE: Alert, oriented x3, no acute distress, obese. HEAD AND FACE: Non-traumatic. EYES: PERRL, pink conjunctivas, eyelid no trauma, anterior chamber clear. EARS: Pinnas intact and no signs of trauma or erythema. Ear canals clear and no discharge. TMs no erythema. NOSE: No discharge, no bleeding. OROPHARYNX: Mouth normal, teeth no caries, tongue pink. Pharynx clear, no erythema. Tonsils no exudates, no abscesses noted. Mucous membrane moist. NECK: Supple, non-tender, no thyromegaly, no masses, no JVD, no bruits. BREAST: Deferred. CHEST: No tenderness, no crepitus, no paradoxical movement, no retractions. LUNGS: Clear, well-ventilated, symmetric, no rales, no wheezing, no rhonchi, no stridor, good breath sounds bilaterally. HEART: Regular rate, regular rhythm, no murmur, no gallops. VASCULAR: No peripheral edema. ABDOMEN: Soft, positive bowel sounds, nondistended, no guarding, nontender, no rebound, no masses no hepatomegaly, no splenomegaly, no Harrington's sign, no hernias. RECTAL: Deferred. GENITAL: Deferred. NEUROLOGICAL: Normal speech, gross motor function intact, gross sensory function intact. MUSCULOSKELETAL: Neck nontender, full range of motion, back nontender, full range of motion. EXTREMITIES: Nontender, full range of motion. SKIN: Color pink, dry, no turgor, no rash, no lacerations, no abrasions, no contusions. LYMPHATICS: Deferred. LABORATORY RESULTS Laboratory Tests 05/16/24 15:00: White Blood Count 5.7, Red Blood Count 4.29, Hemoglobin 12.6, Hematocrit 39.2, Mean Corpuscular Volume 91.4, Mean Corpuscular Hemoglobin 29.4, Mean Corpuscular Hemoglobin Concent 32.1, Red Cell Distribution Width 15.5, Platelet Count 135, Mean Platelet Volume 9.9, Immature Granulocyte % (Auto) 0.5, Neutrophils (%) (Auto) 65.7, Lymphocytes (%) (Auto) 20.1, Monocytes (%) (Auto) 8.7, Eosinophils (%) (Auto) 4.7, Basophils (%) (Auto) 0.3, Neutrophils # (Auto) 3.8, Lymphocytes # (Auto) 1.2, Monocytes # (Auto) 0.5, Eosinophils # (Auto) 0.27, Basophils # (Auto) 0.02, Absolute Immature Granulocyte (auto 0.03, Nucleated Red Blood Cells 0.0, Prothrombin Time 10.9, Prothromb Time International Ratio 1.03, Activated Partial Thromboplast Time 31.2, Sodium Level 144, Potassium Level 4.7, Chloride Level 103, Carbon Dioxide Level 28, Blood Urea Nitrogen 21, Creatinine 2.8, Glomerular Filtration Rate Calc 21, Random Glucose 121, Total Calcium 9.4, Magnesium Level 2.00, Ammonia 11, Total Creatine Kinase 107, Troponin I High Sensitivity 73, B-Type Natriuretic Peptide 157 05/17/24 00:03: Urine Color LIGHT-YELLOW, Urine Appearance CLEAR, Urine pH 5.0, Urine Specific [place] 1.012, Urine Protein NEGATIVE, Urine Glucose (UA) NEGATIVE, Urine Ket ones NEGATIVE, Urine Occult Blood NEGATIVE, Urine Nitrate NEGATIVE, Urine Bilirubin NEGATIVE, Urine Urobilinogen 0.2, Urine Leukocyte Esterase NEGATIVE 05/17/24 06:11: White Blood Count 6.0, Red Blood Count 4.41, Hemoglobin 12.6, Hematocrit 40.5, Mean Corpuscular Volume 91.8, Mean Corpuscular Hemoglobin 28.6, Mean Corpuscular Hemoglobin Concent 31.1, Red Cell Distribution Width 15.4, Platelet Count 128, Mean Platelet Volume 10.4, Immature Granulocyte % (Auto) 0.3, Neutrophils (%) (Auto) 61.8, Lymphocytes (%) (Auto) 24.6, Monocytes (%) (Auto) 8.8, Eosinophils (%) (Auto) 4.2, Basophils (%) (Auto) 0.3, Neutrophils # (Auto) 3.7, Lymphocytes # (Auto) 1.5, Monocytes # (Auto) 0.5, Eosinophils # (Auto) 0.25, Basophils # (Auto) 0.02, Absolute Immature Granulocyte (auto 0.02, Nucleated Red Blood Cells 0.0, Sodium Level 141, Potassium Level 4.7, Chloride Level 107, Carbon Dioxide Level 29, Blood Urea Nitrogen 17, Creatinine 1.8, Glomerular Filtration Rate Calc 36, Random Glucose 102, Total Calcium 9.1, Total Bilirubin 0.5, Aspartate Amino Transf (AST/SGOT) 22, Alanine Aminotransferase (ALT/SGPT) 22, Alkaline Phosphatase 72, Total Protein 6.4, Albumin 3.1 PROBLEM LIST: (1) MARIBELL (acute kidney injury) ICD Codes: N17.9 - Acute kidney failure, unspecified (2) UTI (urinary tract infection) ICD Codes: N39.0 - Urinary tract infection, site not specified (3) CAP (community acquired pneumonia) ICD Codes: J18.9 - Pneumonia, unspecified organism (4) Hypertension ICD Codes: I10 - Essential (primary) hypertension (5) History of COPD ICD Codes: Z87.09 - Personal history of other diseases of the respiratory system PLAN IV antibiotics and hydration and monitor CHRISTIAN NAVARRO MD May 17, 2024 22:50
[2024-05-18] VITALS (8 sets, daily range): BP systolic 123–154; BP diastolic 54–87; PULSE 50–70; RESP 18; TEMP 98.2–99.7; O2SAT 96–98
--- NOTE | 2024-05-18 12:00 | NUR ---
Called Dr Maher This hand sign writer called Dr. Maher about possible discharge and to ask to remove the gordon since te cathter was placed for retention. No answer will attempt again.
--- NOTE | 2024-05-18 13:55 | NUR ---
attempted to reach Dr Maher No response to calls or text messages. Pt is in no distress.
--- NOTE | 2024-05-18 15:25 | NUR ---
Called Dr Maher again No answer and unable to leave message. PT n no distress.
--- NOTE | 2024-05-18 19:47 | NUR ---
f/c removal pt is d/t void, given instructions pt states he does not feel when he has to urinate. spoke with pawan madrigal dtr in law, pt will not have a ride till the morning since her (pt's son) has dialysis in the morning. spoke with dr cortes he says ok for pt to stay until the morning.
--- NOTE | 2024-05-18 21:40 | NUR ---
DTV PT HAS VOIDED
--- NOTE | 2024-05-18 22:08 | PN ---
PROGRESS NOTE PROGRESS NOTE DATE OF PROGRESS NOTE: 05/18/24 SUBJECTIVE: No new complaints VITAL SIGNS Vital Signs Date Time Temp Pulse Resp B/P (MAP) Pulse Ox O2 Delivery O2 Flow Rate FiO2 05/18/24 19:00 98.2 50 18 142/87 96 Nasal Cannula 2.0 05/18/24 10:17 21 PHYSICAL EXAM: Physical Exam Physical Exam Dictation VITAL SIGNS: Reviewed. GENERAL APPEARANCE: Alert, oriented x3, no acute distress, obese. HEAD AND FACE: Non-traumatic. EYES: PERRL, pink conjunctivas, eyelid no trauma, anterior chamber clear. EARS: Pinnas intact and no signs of trauma or erythema. Ear canals clear and no discharge. TMs no erythema. NOSE: No discharge, no bleeding. OROPHARYNX: Mouth normal, teeth no caries, tongue pink. Pharynx clear, no erythema. Tonsils no exudates, no abscesses noted. Mucous membrane moist. NECK: Supple, non-tender, no thyromegaly, no masses, no JVD, no bruits. BREAST: Deferred. CHEST: No tenderness, no crepitus, no paradoxical movement, no retractions. LUNGS: Clear, well-ventilated, symmetric, no rales, no wheezing, no rhonchi, no stridor, good breath sounds bilaterally. HEART: Regular rate, regular rhythm, no murmur, no gallops. VASCULAR: No peripheral edema. ABDOMEN: Soft, positive bowel sounds, nondistended, no guarding, nontender, no rebound, no masses no hepatomegaly, no splenomegaly, no Harrington's sign, no hernias. RECTAL: Deferred. GENITAL: Deferred. NEUROLOGICAL: Normal speech, gross motor function intact, gross sensory function intact. MUSCULOSKELETAL: Neck nontender, full range of motion, back nontender, full range of motion. EXTREMITIES: Nontender, full range of motion. SKIN: Color pink, dry, no turgor, no rash, no lacerations, no abrasions, no contusions. LYMPHATICS: Deferred. INPATIENT MEDS: Current Medications Medications Dose Ordered Sig/Alycia Start Time Stop Time Status Last Admin Ceftriaxone Sodium 1 gm Q24H 05/17/24 00:00 05/27/24 00:00 05/18/24 00:20 Acetaminophen/ Codeine Phosphate 1 tab BID PRN 05/17/24 01:00 06/16/24 00:59 05/17/24 08:06 Aspirin 81 mg DAILY 05/17/24 09:00 06/16/24 08:59 05/18/24 08:25 Baclofen 10 mg BID 05/17/24 09:00 06/16/24 08:59 05/18/24 21:35 Clopidogrel Bisulfate 75 mg DAILY 05/17/24 09:00 06/16/24 08:59 05/18/24 08:25 Docusate Sodium 100 mg DAILY 05/17/24 09:00 06/16/24 08:59 05/18/24 08:30 Furosemide 20 mg DAILY 05/17/24 09:00 06/16/24 08:59 05/18/24 08:25 Gabapentin 100 mg BID 05/17/24 09:00 06/16/24 08:59 05/18/24 21:35 Isosorbide Mononitrate 30 mg DAILY 05/17/24 09:00 06/16/24 08:59 05/18/24 08:26 Naproxen 500 mg BID PRN 05/17/24 01:00 06/16/24 00:59 Oxybutynin Chloride 5 mg DAILY 05/17/24 09:00 06/16/24 08:59 05/18/24 08:27 Trazodone HCl 50 mg HSPRN PRN 05/17/24 01:00 06/16/24 00:59 Home Med DAILY 05/17/24 09:00 06/16/24 08:59 Pantoprazole Sodium 40 mg DAILY 05/17/24 09:00 06/16/24 08:59 05/18/24 08:25 Metoprolol Succinate 100 mg DAILY 05/17/24 09:00 06/16/24 08:59 05/18/24 08:24 Home Med DAILY 05/17/24 09:00 06/16/24 08:59 Mirtazapine 30 mg HS 05/17/24 21:00 06/16/24 20:59 05/18/24 21:35 Losartan Potassium 100 mg DAILY 05/17/24 09:00 06/16/24 08:59 05/18/24 08:24 Atorvastatin Calcium 80 mg HS 05/17/24 21:00 06/16/24 20:59 05/18/24 21:35 Home Med HS 05/17/24 21:00 06/16/24 20:59 Home Med DAILY 05/17/24 09:00 06/16/24 08:59 Sodium Chloride 1,000 ml @ 125 mls/hr Q8H 05/17/24 08:00 06/16/24 07:59 05/18/24 00:24 PROBLEM LIST: (1) MARIBELL (acute kidney injury) ICD Code: N17.9 - Acute kidney failure, unspecified (2) UTI (urinary tract infection) ICD Code: N39.0 - Urinary tract infection, site not specified (3) CAP (community acquired pneumonia) ICD Code: J18.9 - Pneumonia, unspecified organism (4) Hypertension ICD Code: I10 - Essential (primary) hypertension (5) History of COPD ICD Code: Z87.09 - Personal history of other diseases of the respiratory system PLAN: IV antibiotics and hydration and monitor Discontinue Unger catheter if able to void to discharge CHRISTIAN NAVARRO MD May 18, 2024 22:08
[2024-05-19 00:30] VITALS: BP 165/68; PULSE 51; RESP 20; TEMP 98.1
[2024-05-19 04:00] VITALS: BP 173/64; PULSE 75; RESP 20; TEMP 98.1
[2024-05-19 05:48] LABS: BASOPHILS # (AUTO) 0.02 K/uL (0.00-0.20); BASOPHILS % (AUTO) 0.3 % (0.0-5.0); EOSINOPHILS # (AUTO) 0.21 K/uL (0.00-0.70); EOSINOPHILS % (AUTO) 3.1 % (0.0-8.0); HEMATOCRIT 35.2 % (42-54); IMMATURE GRANULOCYTE ABSOLUTE 0.02 K/uL (0-1); LYMPHOCYTES # (AUTO) 1.1 K/uL (1.0-4.8); LYMPHOCYTES % (AUTO) 16.3 % (21.0-51.0); MEAN CORPUSCULAR HEMOGLOBIN 29.5 pg (27.0-33.0); MEAN CORPUSCULAR HGB CONC 32.4 g/dL (32.0-36.0); MEAN CORPUSCULAR VOLUME 91.2 fL (79-99); MONOCYTES # (AUTO) 0.6 K/uL (0.1-1.0); MONOCYTES % (AUTO) 8.8 % (3.0-13.0); NEUTROPHILS # (AUTO) 4.8 K/uL (1.8-7.7); NEUTROPHILS % (AUTO) 71.2 % (40.0-77.0); PLATELET COUNT (AUTO) 112 K/uL (130-400); RED BLOOD CELL COUNT(AUTO) 3.86 MIL/uL (4.50-6.20); RED CELL DISTRIBUTION WIDTH 15.5 % (11.0-15.5); WHITE BLOOD COUNT (AUTO) 6.8 K/uL (4.8-10.8)
[2024-05-19 06:00] LABS: POTASSIUM 3.9 mmol/L (3.5-5.1)
[2024-05-19 08:00] VITALS: BP 166/69; PULSE 64; RESP 20; TEMP 98.2
--- NOTE | 2024-05-19 08:52 | NUR ---
PENDING SON'S ARRIVAL FOR DC
[2024-05-19 10:30] VITALS: O2SAT 95
--- NOTE | 2024-05-19 10:30 | NUR ---
DC NOTE DC INSTRUCTIONS AND FOLLOW UP APPOINTMENT GIVEN TO SON AND PT, VERBALIZED UNDERSTANDING. EAGER TO BE DC, MADE SON AWARE PT DID NOT RECEIVE MORNING MEDICATIONS DUE TO PT ALREADY READY FOR DC , VERBALIZED UNDERSTANDING AND WILL ADMINISTER HIS OWN ONCE ARRIVE TO HOME. PT IS WHEELED DOWNSTAIRS WITH MECHANICAL LEAD INTO VIA PRIVATE CAR. NO FURTHER COMMENTS OR CONCERNS AT THIS BESSIE.
--- NOTE | 2024-05-19 14:50 | DS ---
Discharge Summary DIAGNOSE(S): [ * Dehydration. * Acute kidney injury. * Hypertension, controlled. * urine retention treated with inserting Unger catheter * Dysphagia secondary to cervical spine surgery. . * COPD. HOSPITAL COURSE SUMMARY: [Patient did well with hydration was able to void and was discharged by PCP in 1-2 days] SITE ADMINISTRATOR(S): [] PROCEDURE(S)/TREATMENT(S): [] PROBLEM(S): [] FOLLOW-UP TEST(S): [] DISCHARGE INSTRUCTIONS: [Follow up PCP 1-2 days] Home Meds Reported Medications Trazodone HCl (Trazodone HCl) 100 Mg Tablet, 50 MG PO HSPRN PRN for AGITATION, TAB 05/17/24 Naproxen (Naproxen) 500 Mg Tablet, 1 TAB PO BID PRN for PAIN for 30 Days, #60 TAB 0 Refills 05/17/24 Mirtazapine (Mirtazapine) 30 Mg Tablet, 1 TAB PO HS for 30 Days, #30 TAB 0 Refills 05/17/24 Acetaminophen with Codeine (Acetaminophen-Cod #3 Tablet) 300 Mg-30 Mg Tablet, 1 TAB PO BID PRN for pain for 7 Days, #28 TAB 0 Refills 05/17/24 Tolterodine Tartrate (Tolterodine Tartrate ER) 4 Mg Cap.er.24h, 1 CAP PO HS for 30 Days, #30 CAP 0 Refills 05/17/24 Rosuvastatin Calcium (Rosuvastatin Calcium) 40 Mg Tablet, 1 TAB PO HS for high cholesterol for 30 Days, #30 TAB 0 Refills 05/17/24 Docusate Sodium (Docusate Sodium) 100 Mg Capsule, 1 CAP PO DAILY for constipation for 7 Days, #14 CAP 0 Refills 05/17/24 Furosemide (Furosemide) 20 Mg Tablet, 1 TAB PO DAILY for 30 Days, #30 TAB 0 Refills 05/17/24 Metoprolol Succinate (Metoprolol Succinate) 100 Mg Tab.er.24h, 1 TAB PO DAILY for 30 Days, #30 TAB 0 Refills 05/17/24 Aspirin (Aspirin EC) 81 Mg Tablet.dr, 1 TAB PO DAILY for 30 Days, #30 TAB 0 Refills 05/17/24 Venlafaxine HCl (Venlafaxine HCl) 37.5 Mg Tablet, 1 TAB PO DAILY for 30 Days, #60 TAB 0 Refills 05/17/24 Mirabegron (Myrbetriq) 50 Mg Tab.er.24h, 1 TAB PO DAILY for 30 Days, #30 TAB 0 Refills 05/17/24 Cholecalciferol (Vitamin D3) (Vitamin D3) 25 Mcg (1000 Unit) Capsule, 1 CAP PO DAILY for 30 Days, #30 CAP 0 Refills 05/17/24 Esomeprazole Magnesium (Esomeprazole Magnesium) 40 Mg Capsule.dr, 1 CAP PO DAILY for 30 Days, #30 CAP 0 Refills 05/17/24 Clopidogrel Bisulfate (Clopidogrel) 75 Mg Tablet, 1 TAB PO DAILY for 30 Days, #30 TAB 0 Refills 05/17/24 Gabapentin (Gabapentin) 100 Mg Capsule, 1 CAP PO BID for 30 Days, #90 CAP 0 Refills 05/17/24 Baclofen (Baclofen) 10 Mg Tablet, 1 TAB PO BID for 30 Days, #90 TAB 0 Refills 05/17/24 Oxybutynin Chloride (Oxybutynin Chloride) 5 Mg Tablet, 1 TAB PO DAILY for urinary discomfort for 30 Days, #60 TAB 0 Refills 05/17/24 Olmesartan Medoxomil (Olmesartan Medoxomil) 40 Mg Tablet, 1 TAB PO DAILY for 30 Days, #30 TAB 0 Refills 05/17/24 Isosorbide Mononitrate (Isosorbide Mononitrate ER) 30 Mg Tab.er.24h, 1 TAB PO DAILY for 30 Days, #30 TAB 0 Refills 05/17/24 Budesonide/Glycopyr/Formoterol (Breztri Aerosphere Inhaler) 160 Mcg-9 Mcg-4.8 Mcg/Actuation Hfa.aer.ad, 2 PUFF PO BID 01/15/24 Aspirin (ASPIRIN 81 MG ECTAB) 81 Mg Ectab, 81 MG PO DAILY, TAB.EC 01/15/24 Cholecalciferol (Vitamin D3) (Vitamin D3) 25 Mcg (1000 Unit) Capsule, 25 MCG PO DAILY, CAP 01/15/24 Venlafaxine HCl (Venlafaxine HCl) 37.5 Mg Tablet, 37.5 MG PO DAILYBKFST, TAB 01/15/24 Albuterol Sulfate (Albuterol Sulfate) 2.5 Mg/3 Ml (0.083 %) Vial.neb, 1 VIAL NEB [id number] PRN for wheezing, #150 ML 0 Refills 01/15/24 Acetaminophen with Codeine (Acetaminophen-Cod #3 Tablet) 300 Mg-30 Mg Tablet, 1 EACH PO BID PRN for PAIN, TAB 04/16/23 Mirabegron (Myrbetriq) 50 Mg Tab.er.24h, 50 MG PO DAILY, TAB 04/16/23 Docusate Sodium (Colace) 100 Mg Capsule, 100 MG PO BID, CAP 04/16/23 Mirtazapine (Mirtazapine) 30 Mg Tab.rapdis, 30 MG PO HS, TAB 08/20/22 Rosuvastatin Calcium (Rosuvastatin Calcium) 20 Mg Tablet, 20 MG PO DAILY, TAB 05/22/22 Clopidogrel Bisulfate (Clopidogrel) 75 Mg Tablet, 75 MG PO DAILY, TAB 05/22/22 Olmesartan Medoxomil (Olmesartan Medoxomil) 40 Mg Tablet, 40 MG PO DAILY, TAB 05/22/22 Tolterodine Tartrate (Tolterodine Tartrate ER) 4 Mg Cap.er.24h, 4 MG PO DAILY, CAPSULE.DR 05/22/22 Esomeprazole Magnesium (Esomeprazole Magnesium) 40 Mg Capsule.dr, 40 MG PO DAILYBKFST, CAP 05/22/22 Duloxetine HCl (Duloxetine HCl) 30 Mg Capsule.dr, 60 MG PO DAILY, CAP 05/22/22 Furosemide (Furosemide) 20 Mg Tablet, 20 MG PO DAILY, TAB 05/22/22 Isosorbide Mononitrate (Isosorbide Mononitrate ER) 30 Mg Tab.er.24h, 30 MG PO DAILY, TAB 05/22/22 Gabapentin (Gabapentin) 100 Mg Capsule, 100 MG PO BID, CAP 05/22/22 Metoprolol Succinate (Metoprolol Succinate) 50 Mg Tab.er.24h, 50 MG PO DAILY, TAB 05/22/22 Baclofen (Baclofen) 10 Mg Tablet, 10 MG PO BID PRN for MUSCLE SPASMS, TAB 05/22/22 Prednisone (Prednisone) 20 Mg Tablet, 10 MG PO DAILY, TAB 12/26/17 CHRISTIAN NAVARRO MD May 19, 2024 14:50
== END 2024-05-19 10:30 | disposition home or self-care (01) ==
LOC: EDH 14:05 → INTOOBSV 23:32 → EDHIP 23:32 → 3DH 05-17 09:02
PROVIDERS: ADMIT Internal Medicine; ATTEND Internal Medicine
DX: E86.0 Dehydration (principal); N17.9 Acute kidney failure, unspecified; I11.0 Hypertensive heart disease with heart failure; I50.9 Heart failure, unspecified; N39.0 Urinary tract infection, site not specified; J18.9 Pneumonia, unspecified organism; R33.9 Retention of urine, unspecified; R41.82 Altered mental status, unspecified; I70.90 Unspecified atherosclerosis; M79.10 Myalgia, unspecified site; J44.9 Chronic obstructive pulmonary disease, unspecified; F32.A Depression, unspecified; R13.10 Dysphagia, unspecified; M19.90 Unspecified osteoarthritis, unspecified site; G31.9 Degenerative disease of nervous system, unspecified; Z85.46 Personal history of malignant neoplasm of prostate; Z95.5 Presence of coronary angioplasty implant and graft; Z87.09 Personal history of other diseases of the respiratory system; Z79.899 Other long term (current) drug therapy
CPT/HCPCS: 96361 ×3; 99285; 82550; 83735; 84484; 80048 ×2; 83880; 82140; 85025 ×3; 85610; 85730; 36415 ×3; 71045; 70450; 93005; 96365; 80053; 81003; 76770; 96376 ×2; J7120; J7030; G0378 ×47; J0696 ×3; 96360